=== PATIENT | female | born 1965 | race Caucasian/White ===

== ENCOUNTER 2017-02-03 05:50 | Day surgery (SDC) | payer MEDICAID ==
[2017-02-03] MEDS ORDERED: LIDOCAINE 1% 2 ML INJ ONE (06:20)
[2017-02-03] MEDS ORDERED: LIDOCAINE 1% 5 ML SDV ID PRN (06:23)
[2017-02-03] MEDS ORDERED: LR 1,000 ML IV ONE (06:23)
[2017-02-03] MEDS ORDERED: PROPOFOL/EMULSION 500 MG/50 ML BOTTLE IV ONE (07:06)
[2017-02-03] MEDS ORDERED: MIDAZOLAM 2 MG/2 ML VIAL ONE (07:10)
--- NOTE | 2017-02-03 08:39 | GPN ---
[f rep st] PROCEDURE NOTE PREPROCEDURE DIAGNOSES: 1. First-degree relative with colon cancer. 2. Personal history of colon polyps. POSTPROCEDURE DIAGNOSIS: Colon polyps. PROCEDURE: Colonoscopy with biopsy. MEDICATIONS: Monitored anesthesia care. INDICATIONS: The patient is a 51-year-old female with a family history of colon cancer. Her sister had colon cancer. She also has a history of colon polyps. She is here for repeat surveillance col onoscopy. The risks and the benefits of the procedure were discussed with the patient and consent o btained. The risks include, but not limited to, bleeding, perforation, and risks related to sedatio n. The patient is ASA Class 1. DESCRIPTION OF PROCEDURE: The adult colonoscope was advanced into the terminal ileum, which appeare d normal. The ileocecal valve, appendiceal orifice, cecum, ascending colon, and hepatic flexure wer e normal. There was a 1 mm polyp in the transverse colon which was removed using cold biopsy forcep s and sent off to Pathology. The remainder of the colon appeared normal. Retroflexed views in the rectum were normal. IMPRESSION: Small transverse colon polyp, status post removal, otherwise normal colonoscopy. RECOMMENDATIONS: 1. Discharge home with escort. 2. Advance diet as tolerated. 3. Continue current medications. 4. Repeat surveillance colonoscopy in 5 years for a personal history of polyps and a first-degree r elative with colon cancer. 5. Follow up the final biopsy results. Results available within 10 days. Thank you for allowing me to participate in the care of your patient. Please do not hesitate to sathya tim with questions. /[id number]/MODL
== END 2017-02-03 10:06 | disposition home or self-care (01) ==
LOC: FSGY 05:50
PROVIDERS: ATTEND Internal Medicine Gastroenterology
PROC: 0DBL8ZX Excision of Transverse Colon, Via Natural or Artificial Opening Endoscopic, Diagnostic (ICD-10-PCS; principal; 2017-02-03 07:30)
DX: D12.3 Benign neoplasm of transverse colon (principal); Z80.0 Family history of malignant neoplasm of digestive organs
CPT/HCPCS: J2250; J2704

== ENCOUNTER → 2017-03-19 | Outpatient (CLI) | payer MEDICAID | LOC: FIMAGING 16:03 | PROVIDERS: ATTEND Family Medicine | DX: M79.671 Pain in right foot (principal) ==